=== PATIENT | female | born 1995 | race American Indian/Alaskan Native ===

== ENCOUNTER 2020-09-11 14:02 | Emergency (ER) | payer SELFPAY ==
[2020-09-11] MEDS ORDERED: IBUPROFEN 600 MG TAB PO ONE (15:07)
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
[2020-09-11 17:26] LABS: HCG Qualitative,Urine Negative (Negative)
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
[2020-09-11] MEDS ORDERED: ONDANSETRON 4 MG ODT TAB PO ONE (20:00)
[2020-09-11] MEDS ORDERED: oxyCODONE /ACETAMINOPHEN 5-325MG TAB PO ONE (20:00)
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
[2020-09-11 22:17] VITALS: BP 142/88
== END 2020-09-11 21:00 | disposition home or self-care (01) ==
LOC: ED 14:02
DX: M62.838 Other muscle spasm (principal); M62.830 Muscle spasm of back; I10 Essential (primary) hypertension; Z79.899 Other long term (current) drug therapy; V49.49XA Driver injured in collision with other motor vehicles in traffic accident, initial encounter; Y93.89 Activity, other specified; Y92.488 Other paved roadways as the place of occurrence of the external cause; Y99.8 Other external cause status
CPT/HCPCS: 72125; 72131; 81025; Q0162

== ENCOUNTER 2021-01-23 12:45 | Emergency (ER) | payer SELFPAY ==
[2021-01-23 12:55] VITALS: BP 167/104
--- NOTE | 2021-01-23 13:22 | Emergency Department Report ---
ED ENT HPI - General Chief complaint: Earache Stated complaint: POSSIBLE EAR INFECTION WITH DRAINAGE Time Seen by Provider: 01/23/21 12:49 Source: patient Mode of arrival: Ambulatory Limitations: No Limitations - History of Present Illness Initial comments: This is a 25-year-old female nontoxic, well nourished in appearance, no acute signs of distress presents to the ED with c/o of sore throat with right earache x several days. Patient denies any ear drainage. Patient denies any trauma to the area. Patient denies any mastoid tenderness or tragus tenderness. Patient denies hearing decrease or hearing changes. Patient describes sore throat as swallowing razer blades. Patient denies any fever, chills, headache, stiff neck, nausea, vomiting, chest pain, shortness of breath, numbness or tingling. Patient denies any drooling or hoarseness. Patient denies any allergies or significant past medical history. MD complaint: sore throat, ear pain -: days(s) Location: R ear, throat Severity: mild Severity scale (0 -10): 8 Quality: aching Improves with: none Worsens with: swallowing Associated Symptoms: pain with swallowing, sore throat. denies: fever, cough, gum swelling, toothache, tinnitus, hearing loss, discharge from ear, rhinorrhea - Related Data Previous Rx's Medication Instructions Recorded Last Taken Type Ibuprofen [Motrin] 800 mg PO Q8HR PRN #30 tablet 09/11/20 Unknown Rx methOCARBAMOL [Robaxin TAB] 750 mg PO Q8H PRN #30 tablet 09/11/20 Unknown Rx traMADoL [Ultram] 50 mg PO Q6HR PRN #12 tablet 09/11/20 Unknown Rx Amoxicillin/K Clav Tab [Augmentin 1 tab PO Q12HR #20 tab 01/23/21 Unknown Rx 875 mg] Ibuprofen [Motrin] 600 mg PO Q8H PRN #30 tablet 01/23/21 Unknown Rx Nystas/Diphen/Xyl Visc/Mylanta 15 ml MM Q6H PRN 5 Days #1 bottle 01/23/21 Unknown Rx [Magic Mouthwash] Allergies Allergy/AdvReac Type Severity Reaction Status Date / Time No Known Allergies Allergy Unverified 09/11/20 14:40 ED Dental HPI - General Chief complaint: Earache Stated complaint: POSSIBLE EAR INFECTION WITH DRAINAGE Time Seen by Provider: 01/23/21 12:49 Source: patient Mode of arrival: Ambulatory Limitations: No Limitations - Related Data Previous Rx's Medication Instructions Recorded Last Taken Type Ibuprofen [Motrin] 800 mg PO Q8HR PRN #30 tablet 09/11/20 Unknown Rx methOCARBAMOL [Robaxin TAB] 750 mg PO Q8H PRN #30 tablet 09/11/20 Unknown Rx traMADoL [Ultram] 50 mg PO Q6HR PRN #12 tablet 09/11/20 Unknown Rx Amoxicillin/K Clav Tab [Augmentin 1 tab PO Q12HR #20 tab 01/23/21 Unknown Rx 875 mg] Ibuprofen [Motrin] 600 mg PO Q8H PRN #30 tablet 01/23/21 Unknown Rx Nystas/Diphen/Xyl Visc/Mylanta 15 ml MM Q6H PRN 5 Days #1 bottle 01/23/21 Unknown Rx [Magic Mouthwash] Allergies Allergy/AdvReac Type Severity Reaction Status Date / Time No Known Allergies Allergy Unverified 09/11/20 14:40 ED Review of Systems ROS: Stated complaint: POSSIBLE EAR INFECTION WITH DRAINAGE Other details as noted in HPI Constitutional: denies: chills, fever Eyes: denies: eye pain, eye discharge, vision change ENT: ear pain, throat pain. denies: dental pain, hearing loss, epistaxis, congestion Respiratory: denies: cough, shortness of breath, wheezing Cardiovascular: denies: chest pain, palpitations Endocrine: no symptoms reported Gastrointestinal: denies: abdominal pain, nausea, diarrhea Genitourinary: denies: urgency, dysuria, discharge Musculoskeletal: denies: back pain, joint swelling, arthralgia Skin: denies: rash, lesions Neurological: denies: headache, weakness, paresthesias Psychiatric: denies: anxiety, depression Hematological/Lymphatic: denies: easy bleeding, easy bruising ED Past Medical Hx - Past Medical History Previous Medical History?: Yes Hx Hypertension: Yes - Surgical History Past Surgical History?: No - Social History Smoking Status: Current Every Day Smoker Substance Use Type: Alcohol, Marijuana - Medications Home Medications: Home Medications Medication Instructions Recorded Confirmed Last Taken Type Ibuprofen [Motrin] 800 mg PO Q8HR PRN #30 tablet 09/11/20 Unknown Rx methOCARBAMOL [Robaxin TAB] 750 mg PO Q8H PRN #30 tablet 09/11/20 Unknown Rx traMADoL [Ultram] 50 mg PO Q6HR PRN #12 tablet 09/11/20 Unknown Rx Amoxicillin/K Clav Tab [Augmentin 1 tab PO Q12HR #20 tab 01/23/21 Unknown Rx 875 mg] Ibuprofen [Motrin] 600 mg PO Q8H PRN #30 tablet 01/23/21 Unknown Rx Nystas/Diphen/Xyl Visc/Mylanta 15 ml MM Q6H PRN 5 Days #1 bottle 01/23/21 Unknown Rx [Magic Mouthwash] ED Physical Exam - General Limitations: No Limitations General appearance: alert, in no apparent distress - Head Head exam: Present: atraumatic, normocephalic - Eye Eye exam: Present: normal appearance - ENT ENT exam: Present: mucous membranes moist - Expanded ENT Exam Expanded Ear exam: Present: normal external inspection TM/Canal exam: Erythema: Right TM, Bulging: Right TM Mouth exam: Present: normal external inspection, tongue normal. Absent: drooling, trismus, muffled voice Teeth exam: Present: normal inspection Throat exam: Positive: tonsillar erythema, tonsillomegaly (2+), tonsillar exudate, other (uvula midline. no tonsillar abscess). Negative: R peritonsillar mass, L peritonsillar mass - Neck Neck exam: Present: normal inspection, full ROM. Absent: tenderness, meningismus, lymphadenopathy - Respiratory Respiratory exam: Absent: respiratory distress - Cardiovascular Cardiovascular Exam: Present: regular rate - Extremities Exam Extremities exam: Present: full ROM - Back Exam Back exam: Present: full ROM - Neurological Exam Neurological exam: Present: alert, oriented X3, normal gait - Psychiatric Psychiatric exam: Present: normal affect, normal mood - Skin Skin exam: Present: warm, dry, intact, normal color. Absent: rash ED Course Vital Signs 01/23/21 12:54 Temperature 99 F Pulse Rate 88 Respiratory 20 Rate Blood Pressure 167/104 [Right] O2 Sat by Pulse 100 Oximetry - Reevaluation(s) Reevaluation #1: 01/23/21 13:27 Patient is speaking in full sentences with no signs of distress noted. ED Medical Decision Making - Medical Decision Making This is a 22-year-old female that presents with tonsillitis with exudate and right otitis media. Patient is stable was examined by me. There is no drooling. No tonsillar abscess noted. Uvula is midline. Patient be treated with Augmentin. Vital signs are stable. Patient is not febrile and normal heart rate. Patient was instructed to Follow-up with a primary care doctor in 3-5 days or if symptoms worsen and continue return to emergency room as soon as possible. At time of discharge, the patient does not seem toxic or ill in appearance. No acute signs of distress noted. Patient agrees to discharge treatment plan of care. No further questions noted by the patient. Critical care attestation.: If time is entered above; I have spent that time in minutes in the direct care of this critically ill patient, excluding procedure time. ED Disposition Clinical Impression: Tonsillitis with exudate Right otitis media Qualifiers: Otitis media type: unspecified Qualified Code(s): H66.91 - Otitis media, unspecified, right ear Disposition: DC- TO HOME OR SELFCARE Is pt being admited?: No Does the pt Need Aspirin: No Condition: Stable Instructions: Tonsillitis, [id number], Otitis Media, Adult Additional Instructions: Follow-up with a primary care doctor in 3-5 days or if symptoms worsen and continue return to emergency room as soon as possible. Prescriptions: Amoxicillin/K Clav Tab [Augmentin 875 mg] 1 tab PO Q12HR #20 tab Nystas/Diphen/Xyl Visc/Mylanta [Magic Mouthwash] 15 ml MM Q6H PRN 5 Days #1 bottle PRN Reason: Sore Throat Ibuprofen [Motrin] 600 mg PO Q8H PRN #30 tablet PRN Reason: Pain Referrals: PRIMARY MD PERFECTO [Primary Care Provider] - 3-5 Days SUSAN OZUNA MD [Staff Physician] - 3-5 Days Forms: Work/School Release Form(ED) Time of Disposition: 13:30
[2021-01-23] MEDS ORDERED: IBUPROFEN 800 MG TAB ONE (13:32)
[2021-01-23] MEDS ORDERED: IBUPROFEN 800 MG TAB PO ONE (13:33)
== END 2021-01-23 14:40 | disposition home or self-care (01) ==
LOC: ED 12:45
DX: J03.90 Acute tonsillitis, unspecified (principal); H66.91 Otitis media, unspecified, right ear; I10 Essential (primary) hypertension; F17.200 Nicotine dependence, unspecified, uncomplicated; F12.10 Cannabis abuse, uncomplicated; Z79.899 Other long term (current) drug therapy
CPT/HCPCS: 99282

== ENCOUNTER 2021-12-10 10:55 | Emergency (ER) | payer OTHER ==
[2021-12-10] MEDS ORDERED: ONDANSETRON 4 MG ODT TAB PO ONE (11:34)
[2021-12-10] MEDS ORDERED: oxyCODONE /ACETAMINOPHEN 5-325MG TAB PO ONE (11:34)
--- NOTE | 2021-12-10 11:41 | Emergency Department Report ---
ED General Adult HPI - General Chief complaint: Dental/Oral Stated complaint: TOOTHACHE Time Seen by Provider: 12/10/21 11:24 Source: patient Mode of arrival: Ambulatory Limitations: No Limitations - History of Present Illness Initial comments: 26-year-old -[place] female patient presents with complaints of left upper dental pain x2 days. Patient states she has chronic recurrent pain in the tooth that is normally mild, however 2 days ago her pain suddenly became very severe. She rates her pain as a 10/10 in severity and states ibuprofen and Aleve are not helping. Patient states she did make an appointment with a dental specialist, however the appointment is for 1 month from now. No known drug allergies or past medical history per patient. -: Sudden - Related Data Previous Rx's Medication Instructions Recorded Last Taken Type Ibuprofen [Motrin] 800 mg PO Q8HR PRN #30 tablet 09/11/20 Unknown Rx methOCARBAMOL [Robaxin TAB] 750 mg PO Q8H PRN #30 tablet 09/11/20 Unknown Rx traMADoL [Ultram] 50 mg PO Q6HR PRN #12 tablet 09/11/20 Unknown Rx Amoxicillin/K Clav Tab [Augmentin 1 tab PO Q12HR #20 tab 01/23/21 Unknown Rx 875 mg] Ibuprofen [Motrin] 600 mg PO Q8H PRN #30 tablet 01/23/21 Unknown Rx Nystas/Diphen/Xyl Visc/Mylanta 15 ml MM Q6H PRN 5 Days #1 bottle 01/23/21 Unknown Rx [Magic Mouthwash] Acetaminophen/Codeine [Tylenol 1 tab PO Q6H PRN #10 tab 12/10/21 Unknown Rx /Codeine # 3 tab] Penicillin V Potassium 500 mg PO QID 7 Days #28 tab 12/10/21 Unknown Rx Allergies Allergy/AdvReac Type Severity Reaction Status Date / Time No Known Allergies Allergy Unverified 09/11/20 14:40 ED Review of Systems ROS: Stated complaint: TOOTHACHE Other details as noted in HPI Constitutional: denies: diaphoresis, fever, malaise, weakness ENT: dental pain. denies: ear pain, throat pain Respiratory: denies: cough, shortness of breath Cardiovascular: denies: chest pain Hematological/Lymphatic: denies: swollen glands ED Past Medical Hx - Past Medical History Hx Hypertension: Yes - Social History Smoking Status: Never Smoker Substance Use Type: None - Medications Home Medications: Home Medications Medication Instructions Recorded Confirmed Last Taken Type Ibuprofen [Motrin] 800 mg PO Q8HR PRN #30 tablet 09/11/20 Unknown Rx methOCARBAMOL [Robaxin TAB] 750 mg PO Q8H PRN #30 tablet 09/11/20 Unknown Rx traMADoL [Ultram] 50 mg PO Q6HR PRN #12 tablet 09/11/20 Unknown Rx Amoxicillin/K Clav Tab [Augmentin 1 tab PO Q12HR #20 tab 01/23/21 Unknown Rx 875 mg] Ibuprofen [Motrin] 600 mg PO Q8H PRN #30 tablet 01/23/21 Unknown Rx Nystas/Diphen/Xyl Visc/Mylanta 15 ml MM Q6H PRN 5 Days #1 bottle 01/23/21 Unknown Rx [Magic Mouthwash] Acetaminophen/Codeine [Tylenol 1 tab PO Q6H PRN #10 tab 12/10/21 Unknown Rx /Codeine # 3 tab] Penicillin V Potassium 500 mg PO QID 7 Days #28 tab 12/10/21 Unknown Rx ED Physical Exam - General Limitations: No Limitations General appearance: alert, in no apparent distress - Head Head exam: Present: atraumatic, normocephalic - Eye Eye exam: Present: normal appearance - Expanded ENT Exam Expanded 1 - Dental Tenderness, Other (Deep dental carry noted with mild surrounding erythema of the gum; no obvious dental abscess or overlying facial swelling noted) Throat exam: Positive: normal inspection - Neck Neck exam: Present: normal inspection. Absent: lymphadenopathy - Respiratory Respiratory exam: Absent: respiratory distress - Cardiovascular Cardiovascular Exam: Present: regular rate - Neurological Exam Neurological exam: Present: alert, oriented X3 - Psychiatric Psychiatric exam: Present: normal affect, normal mood - Skin Skin exam: Present: warm, dry, intact, normal color. Absent: rash ED Course Vital Signs 12/10/21 12/10/21 11:23 12:25 Temperature 99.0 F 98.2 F Pulse Rate 77 74 Respiratory 18 20 Rate Blood Pressure 157/103 Blood Pressure 147/106 [Left] O2 Sat by Pulse 100 100 Oximetry ED Medical Decision Making - Medical Decision Making 26-year-old -[place] female patient presents with complaints of left upper dental pain x2 days. Patient states she has chronic recurrent pain in the tooth that is normally mild, however 2 days ago her pain suddenly became very severe. She rates her pain as a 10/10 in severity and states ibuprofen and Aleve are not helping. Patient states she did make an appointment with a dental specialist, however the appointment is for 1 month from now. No known drug allergies or past medical history per patient. Infected dental carry noted on exam. Will treat with penicillin. Patient to follow-up with her dental specialist as scheduled. She is otherwise well- appearing, her vitals are within normal limits, she is stable for discharge home. Discussed in detail signs and symptoms that should prompt immediate return to ED with patient who verbalizes understanding Blood pressure noted to be elevated. Patient states her PCP took her off her lisinopril about 2 to 3 months ago and she has been managing her blood pressure via diet and exercise. Discussed recheck of blood pressure over the next 2 to 3 days and importance of follow-up with her primary care doctor for further discussion of treatment of her hypertension, she verbalized understanding Critical care attestation.: If time is entered above; I have spent that time in minutes in the direct care of this critically ill patient, excluding procedure time. ED Disposition Clinical Impression: Infected dental caries Disposition: 01 HOME / SELF CARE / HOMELESS Is pt being admited?: No Condition: Stable Instructions: Dental Abscess, Cica-kg-Imcu Prescriptions: Penicillin V Potassium 500 mg PO QID 7 Days #28 tab Acetaminophen/Codeine [Tylenol /Codeine # 3 tab] 1 tab PO Q6H PRN #10 tab PRN Reason: Pain , Severe (7-10) Referrals: SUSAN OZUNA MD [Primary Care Provider] - 3-5 Days Forms: Work/School Release Form(ED)
[2021-12-10 12:27] VITALS: BP 147/106
== END 2021-12-10 12:24 | disposition home or self-care (01) ==
LOC: ED 10:55
DX: K04.7 Periapical abscess without sinus (principal); I10 Essential (primary) hypertension
CPT/HCPCS: 99282; J3490; Q0162

== ENCOUNTER 2022-03-25 08:37 | Emergency (ER) | payer OTHER ==
[2022-03-25 09:03] LABS: Basophils # (Auto) 0.1 K/mm3 (0.0-0.1); Eosinophils # (Auto) 0.1 K/mm3 (0.0-0.4); Eosinophils % (Auto) 1.4 % (0.0-4.3); Lymphocytes # (Auto) 2.6 K/mm3 (1.2-5.4); Lymphocytes % (Auto) 32.3 % (13.4-35.0); Mean Corpuscular HGB Conc 33 % (30-34); Mean Corpuscular Volume 86 fl (79-97); Monocytes # (Auto) 0.5 K/mm3 (0.0-0.8); Monocytes % (Auto) 6.2 % (0.0-7.3); Platelet Count 221 K/mm3 (140-440); Red Blood Count 4.21 M/mm3 (3.65-5.03); Red Cell Distribution Width 14.7 % (13.2-15.2)
[2022-03-25 09:22] LABS: Blood Urea Nitrogen 8 mg/dL (7-17); Calcium 9.4 mg/dL (8.4-10.2); Hemolysis Index 2
[2022-03-25 09:30] LABS: BUN/Creatinine Ratio 13
--- NOTE | 2022-03-25 11:22 | Emergency Department Report ---
ED General Adult HPI - General Chief complaint: Abdominal Pain Stated complaint: Resolved abdominal pain, with vomiting Time Seen by Provider: 03/25/22 11:12 Source: patient, RN notes reviewed, old records reviewed Mode of arrival: Ambulatory Limitations: No Limitations - History of Present Illness Initial comments: The patient was evaluated in the emergency department for symptoms described in the history of present illness. He/she was evaluated in the context of the global COVID-19 pandemic, which necessitated consideration that the patient might be at risk for infection with the virus that causes COVID-19. Institutional protocols and algorithms that pertain to the evaluation of patients at risk for COVID-19 are in a state of rapid change based on information released by regulatory bodies including the CDC and federal and state organizations. These policies and algorithms were followed during the patient's care in the emergency department. Please note that these policies, procedures and recommendations changed on a rapid basis. 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 She presents to the department today with a complaint of resolved epigastric discomfort, with nausea and vomiting. It happened after she ate spicy pizza. Her symptoms started last night. They are now resolved. She currently denies headache, neck pain, chest pain, abdominal pain, shortness of breath, urinary symptoms and diarrhea. She does not believe that she is today. -: Sudden Consistency: now resolved Improves with: none Worsens with: none Associated Symptoms: denies other symptoms - Related Data Previous Rx's Medication Instructions Recorded Last Taken Type Amoxicillin/K Clav Tab [Augmentin 1 tab PO Q12HR #20 tab 01/23/21 Unknown Rx 875 mg] Nystas/Diphen/Xyl Visc/Mylanta 15 ml MM Q6H PRN 5 Days #1 bottle 01/23/21 Un known Rx [Magic Mouthwash] Penicillin V Potassium 500 mg PO QID 7 Days #28 tab 12/10/21 Unknown Rx Lisinopril [Zestril TAB] 2.5 mg PO QDAY #30 tab 03/25/22 Unknown Rx Ondansetron [Zofran Odt] 4 mg PO Q8HR PRN #20 tab.rapdis 03/25/22 Unknown Rx Pantoprazole [Protonix TAB] 20 mg PO QDAY #30 tablet. 03/25/22 Unknown Rx Allergies Allergy/AdvReac Type Severity Reaction Status Date / Time No Known Allergies Allergy Verified 03/25/22 08:44 ED Review of Systems ROS: Stated complaint: VOMITING/REQUENT DIARRHEA Other details as noted in HPI Comment: All other systems reviewed and negative Gastrointestinal: nausea, vomiting ED Past Medical Hx - Past Medical History Hx Hypertension: Yes - Social History Smoking Status: Never Smoker Substance Use Type: None - Medications Home Medications: Home Medications Medication Instructions Recorded Confirmed Last Taken Type Amoxicillin/K Clav Tab [Augmentin 1 tab PO Q12HR #20 tab 01/23/21 Unknown Rx 875 mg] Nystas/Diphen/Xyl Visc/Mylanta 15 ml MM Q6H PRN 5 Days #1 bottle 01/23/21 Unknown Rx [Magic Mouthwash] Penicillin V Potassium 500 mg PO QID 7 Days #28 tab 12/10/21 Unknown Rx Lisinopril [Zestril TAB] 2.5 mg PO QDAY #30 tab 03/25/22 Unknown Rx Ondansetron [Zofran Odt] 4 mg PO Q8HR PRN #20 tab.rapdis 03/25/22 Unknown Rx Pantoprazole [Protonix TAB] 20 mg PO QDAY #30 tablet. 03/25/22 Unknown Rx ED Physical Exam - General Limitations: No Limitations General appearance: alert, in no apparent distress - Head Head exam: Present: atraumatic, normocephalic - Eye Eye exam: Present: normal appearance, EOMI. Absent: nystagmus - ENT ENT exam: Present: normal exam, normal orophraynx, mucous membranes moist, normal external ear exam - Neck Neck exam: Present: normal inspection, full ROM. Absent: tenderness, meningismus - Respiratory Respiratory exam: Present: normal lung sounds bilaterally. Absent: respiratory distress, wheezes, rales, rhonchi, stridor, decreased breath sounds - Cardiovascular Cardiovascular Exam: Present: regular rate, normal rhythm, normal heart sounds. Absent: bradycardia, tachycardia, irregular rhythm, systolic murmur, diastolic murmur, rubs, gallop - GI/Abdominal GI/Abdominal exam: Present: soft, normal bowel sounds. Absent: distended, tenderness, guarding, rebound, rigid, pulsatile mass - Extremities Exam Extremities exam: Present: normal inspection, full ROM, other (2+ pulses noted in the bilateral upper and lower extremities. There is no palpable cord. negative Homans sign. Muscular compartments are soft. The pelvis is stable.). Absent: pedal edema, calf tenderness - Back Exam Back exam: Present: normal inspection, full ROM. Absent: tenderness, CVA tenderness (R), CVA tenderness (L), paraspinal tenderness, vertebral tenderness - Neurological Exam Neurological exam: Present: alert, oriented X3, normal gait, other (No facial droop. Tongue midline. Extraocular movements intact bilaterally. Facial sensation intact to light touch in V1, V2, V3 distribution bilaterally. 5 and a 5 strength in 4 extremities. Sensation intact to light touch in 4 extremities.) . Absent: motor sensory deficit - Psychiatric Psychiatric exam: Present: normal affect, normal mood - Skin Skin exam: Present: warm, dry, intact, normal color. Absent: rash ED Course Vital Signs 03/25/22 03/25/22 03/25/22 08:42 11:56 12:03 Temperature 98 F 98.4 F 98.4 F Pulse Rate 83 62 62 Respiratory 16 11 L 11 L Rate Blood Pressure 169/102 Blood Pressure 163/92 164/109 [Left] O2 Sat by Pulse 99 100 100 Oximetry O2 Sat by Pulse Oximetry [ Digit-Finger] 03/25/22 12:43 Temperature Pulse Rate Respiratory Rate Blood Pressure Blood Pressure [Left] O2 Sat by Pulse Oximetry O2 Sat by Pulse 99 Oximetry [ Digit-Finger] - Reevaluation(s) Reevaluation #1: 03/25/22 12:39 Differential diagnosis, include but not limited to: GERD, gastritis, encounter for negative test, chronic hypertension, medication refill Assessment and plan: 26-year-old female, who is afebrile, with reassuring vital signs, with exception of chronic hypertension, with a benign and unremarkable physical examination, presenting with resolved epigastric burning, nausea and vomiting after eating heavy and spicy foods. She is observed in this department for hours without clinical decompensation, has no abdominal tenderness, and no active vomiting. A test was not ordered, and I have requested a test. Please note that multiple phone calls have been made to the lab, and ultimately, the lab is not able to add on a serum test, so we have requested a urine test. Should this be negative, discharged with Protonix, Zofran, and refill on lisinopril. Please note that the aforementioned delay and test has led to a delay in disposition for this patient. I did discuss diet and lifestyle modifications with the patient, as well as instructions for smoke avoidance. All questions are answered. Currently awaiting test 03/25/22 12:58 test negative. No active vomiting. Discharged with outpatient follow-up. Return precautions are reviewed. All questions answered peer - Pulse Oximetry Interpretation Digit-Finger Initial Pulse Oximetry Readin O2 Sat by Pulse Oximetry: 99 Actions Taken: none ED Medical Decision Making - Lab Data Result diagrams: 03/25/22 08:49 03/25/22 08:49 Lab Results 03/25/22 03/25/22 03/25/22 Range/Units 08:49 08:49 12:38 WBC 8.1 (4.5-11.0) K/mm3 RBC 4.21 (3.65-5.03) M/mm3 Hgb 12.0 (10.1-14.3) gm/dl Hct 36.0 (30.3-42.9) % MCV 86 (79-97) fl MCH 29 (28-32) pg MCHC 33 (30-34) % RDW 14.7 (13.2-15.2) % Plt Count 221 (140-440) K/mm3 Lymph % (Auto) 32.3 (13.4-35.0) % Williams % (Auto) 6.2 (0.0-7.3) % Eos % (Auto) 1.4 (0.0-4.3) % Baso % (Auto) 1.0 (0.0-1.8) % Lymph # (Auto) 2.6 (1.2-5.4) K/mm3 Williams # (Auto) 0.5 (0.0-0.8) K/mm3 Eos # (Auto) 0.1 (0.0-0.4) K/mm3 Baso # (Auto) 0.1 (0.0-0.1) K/mm3 Seg Neutrophils % 59.1 (40.0-70.0) % Seg Neutrophils # 4.8 (1.8-7.7) K/mm3 Sodium 138 (137-145) mmol/L Potassium 3.7 (3.6-5.0) mmol/L Chloride 105.5 (98-107) mmol/L Carbon Dioxide 21 L (22-30) mmol/L Anion Gap 15 mmol/L BUN 8 (7-17) mg/dL Creatinine 0.6 (0.6-1.2) mg/dL Estimated GFR > 60 ml/min BUN/Creatinine Ratio 13 % Glucose 92 (65-100) mg/dL Calcium 9.4 (8.4-10.2) mg/dL Lipase 19 (13-60) units/L Urine HCG, Qual Negative (Negative) Vital Signs 03/25/22 03/25/22 03/25/22 08:42 11:56 12:03 Temperature 98 F 98.4 F 98.4 F Pulse Rate 83 62 62 Respiratory 16 11 L 11 L Rate Blood Pressure 169/102 Blood Pressure 163/92 164/109 [Left] O2 Sat by Pulse 99 100 100 Oximetry O2 Sat by Pulse Oximetry [ Digit-Finger] 03/25/22 12:43 Temperature Pulse Rate Respiratory Rate Blood Pressure Blood Pressure [Left] O2 Sat by Pulse Oximetry O2 Sat by Pulse 99 Oximetry [ Digit-Finger] Critical care attestation.: If time is entered above; I have spent that time in minutes in the direct care of this critically ill patient, excluding procedure time. ED Disposition Clinical Impression: History of nausea and vomiting, Elevated blood pressure reading, Medication refill, Negative test Disposition: 01 HOME / SELF CARE / HOMELESS Is pt being admited?: No Does the pt Need Aspirin: No Condition: Good Instructions: Hypertension, Adult, Abdominal Pain (ED) Additional Instructions: Please avoid consumption of alcohol, tobacco, smoke products, heavy and spicy foods. Please take the nausea medication as needed and directed, and patient may take the Protonix as needed for abdominal pain, with nausea and vomiting. Patient is advised to avoid consumption of Motrin, ibuprofen, Naprosyn, Aleve. Patient may take [id number] Tylenol as needed for physical pain. We advised that the patient follow-up with a primary care doctor within the next month. Patient has received a 1 month refill on her lisinopril. Lisinopril requires monitoring with an outpatient primary care doctor. Please return to the emergency room right away with new pain, worsened pain, migration of pain, projectile vomiting, change in mental status, confusion, inability tolerate liquid feeds, new, worsened or different symptoms not present on the initial emergency room evaluation Prescriptions: Pantoprazole [Protonix TAB] 20 mg PO QDAY #30 tablet. Lisinopril [Zestril TAB] 2.5 mg PO QDAY #30 tab Ondansetron [Zofran Odt] 4 mg PO Q8HR PRN #20 tab.rapdis PRN Reason: Nausea Referrals: PRIMARY CARE, [Primary Care Provider] - 3-5 Days [facility] [Provider Group] - 3-5 Days [facility] [Outside] - 3-5 Days Forms: Work/School Release Form(ED)
[2022-03-25] MEDS ORDERED: ONDANSETRON 4 MG ODT TAB PO ONE (11:28)
[2022-03-25] MEDS ORDERED: PANTOPRAZOLE 40 MG TAB PO ONE (11:28)
[2022-03-25 12:49] LABS: HCG Qualitative,Urine Negative (Negative)
[2022-03-25] MEDS ORDERED: LISINOPRIL 5 MG TAB PO ONE (12:59)
[2022-03-25 13:22] VITALS: BP 156/102
== END 2022-03-25 19:02 | disposition home or self-care (01) ==
LOC: ED 08:37
DX: I10 Essential (primary) hypertension (principal); R11.2 Nausea with vomiting, unspecified; Z32.02 Encounter for pregnancy test, result negative; Z76.0 Encounter for issue of repeat prescription
CPT/HCPCS: 36415; 80048; 81025; 83690; 85025; 99283; J3490; Q0162